=== PATIENT | male | born 1985 | race Hispanic/Latino ===

== ENCOUNTER 2022-01-10 00:58 | Emergency (ER) | payer SELFPAY ==
[~2022-01-10] VITALS: Ht 162.6 cm; Wt 75.0 kg
[2022-01-10] VITALS (13 sets, daily range): BP systolic 85–162; BP diastolic 54–94
[2022-01-10 01:37] LABS: HEMATOCRIT 43.8 % (39.0-50.0); HEMOGLOBIN 15.4 g/dl (14.0-18.0); IMMATURE GRANULOCYTES 0.3 % (0.0-5.0); MEAN CELL VOLUME 89.9 fL CALC (80.0-100.0); MEAN CORPUSCULAR HGB 31.6 pG CALC (26.0-32.0); MEAN CORPUSCULAR HGB CONC 35.2 g/dL CAL (32.0-36.0); NEUT# 2.74 thou/uL (1.82-7.42); RED BLOOD COUNT 4.87 mill/uL (4.70-6.10); RED CELL DISTRI WIDTH 11.9 % (11.5-15.5)
[2022-01-10 01:42] LABS: ALBUMIN 4.5 g/dL (3.2-5.0); ALKALINE PHOSPHATASE 80 u/l (38-126); ANION GAP 16 (6-22 (CALC)); BILIRUBIN, TOTAL 0.6 mg/dL (0.0-1.4); BUN 9 mg/dL (9-20); BUN/CREATININE RATIO 12 (12-20 (CALC)); CARBON DIOXIDE 21 mmol/l (22-30); CHLORIDE 110 mmol/l (95-108); CREATININE 0.8 mg/dL (0.7-1.3); ETHYL ALCOHOL 298 mg/dl (0-30); GFR > 60 ML/MIN (>=60 (CALC)); GFR FOR AFR.AMER. > 60 ML/MIN (>=60 (CALC)); POTASSIUM 3.8 mmol/l (3.5-5.1); SGOT/AST 57 u/l (17-59); SODIUM 144 mmol/l (137-146); TOTAL PROTEIN 7.6 g/dL (6.3-8.2)
== END 2022-01-10 08:25 | disposition home or self-care (01) | DRG 897 ==
LOC: ED 00:58
PROVIDERS: Emergency Medicine
DX: F10.129 Alcohol abuse with intoxication, unspecified (principal)

== ENCOUNTER 2022-03-29 22:05 | Emergency (ER) | payer SELFPAY ==
[~2022-03-29] VITALS: Ht 162.6 cm; Wt 72.0 kg
[2022-03-30 00:05] VITALS: BP 131/83
== END 2022-03-30 00:05 | disposition home or self-care (01) | DRG 125 ==
LOC: ED 22:05
DX: S05.92XA Unspecified injury of left eye and orbit, initial encounter (principal); H54.62 Unqualified visual loss, left eye, normal vision right eye; W22.8XXA Striking against or struck by other objects, initial encounter; Y92.512 Supermarket, store or market as the place of occurrence of the external cause